=== PATIENT | male | born 1935 | race Caucasian/White ===

== ENCOUNTER 2019-06-04 00:43 | Observation (INO) | payer MEDICARE ==
--- NOTE | 2019-06-04 01:06 | ERPHSYRPT ---
- History of Present Illness Time Seen by Provider: 06/04/19 00:50 Source: patient, EMS Exam Limitations: no limitations Physician History: 84 y/o white male presents with accidental exposure to propane gas leak. appears to have been leaking for 6 hours. pt was on the same floor as the leak. son was up stairs without any sx. EMS was called by son because pt was so dizzy after lying on the couch and tried to get up and take a shower but could not. son then called ambulance. upon arrival by EMS, the door opened and scent of propane gas was quite apparent. pt was dizzy, vomiting and unable to get up. pt has bradycardia with hr in the 50s. however, en route, pt given atropine for hr in 40s and zofran. pt states, upon arrival, no cp, dizziness better. poison control center was called by EMS. they recommended ekg, carboxyhemoglobin level , lactic acid and ABG Timing/Duration: today Severity: mild Associated Symptoms: nausea, vomiting, No abdominal pain, No shortness of breath , No headaches, No other (dizziness) Allergies/Adverse Reactions: No Known Drug Allergies Allergy (Verified 06/04/19 01:11) Home Medications: Multivitamin [Multi-Vitamin Daily] 1 tab PO DAILY 05/19/14 [History] Gabapentin 100 mg PO TID 06/19/15 [History] Hx Tetanus, Diphtheria Vaccination/Date Given: Yes (within last 10 yrs) Hx Influenza Vaccination/Date Given: Yes (2012) Hx Pneumococcal Vaccination/Date Given: Yes (2010) - Review of Systems Constitutional: No Symptoms Eyes: No Symptoms Ears, Nose, & Throat: No Symptoms Respiratory: No Symptoms Cardiac: No Symptoms Abdominal/Gastrointestinal: Nausea, Vomiting Genitourinary Symptoms: No Symptoms Musculoskeletal: No Symptoms Skin: No Symptoms Neurological: Dizziness, Headache Psychological: No Symptoms Endocrine: No Symptoms Hematologic/Lymphatic: No Symptoms Immunological/Allergic: No Symptoms All Other Systems: Reviewed and Negative - Past Medical History Pertinent Past Medical History: Yes Neurological History: Peripheral Neuropathy ENT History: Cataracts Cardiac History: Hypertension Respiratory History: No Pertinent History Endocrine Medical History: No Pertinent History Musculoskeletal History: Arthritis GI Medical History: No Pertinent History History: No Pertinent History Psycho-Social History: No Pertinent History Male Reproductive Disorders: No Pertinent History Other Medical History: bilat lens implant - Past Surgical History Past Surgical History: Yes Neuro Surgical History: No Pertinent History Cardiac: No Pertinent History Respiratory: No Pertinent History Gastrointestinal: Appendectomy Genitourinary: No Pertinent History Musculoskeletal: No Pertinent History Male Surgical History: No Pertinent History Other Surgical History: urinary tract closing up and opened it up, lens implant - Social History Smoking Status: Former smoker Exposure to second hand smoke: No Drug Use: none Patient Lives Alone: Yes - Nursing Vital Signs Nursing Vital Signs: Initial Vital Signs Temperature 97.2 F 06/04/19 00:46 Pulse Rate 55 L 06/04/19 00:46 Respiratory Rate 18 06/04/19 00:46 Blood Pressure 168/79 06/04/19 00:46 O2 Sat by Pulse Oximetry 97 06/04/19 00:46 Pain Scale Pain Intensity 0 - Physical Exam General Appearance: mild distress, alert, anxiety Eye Exam: PERRL/EOMI, eyes nml inspection Ears, Nose, Throat Exam: normal ENT inspection, moist mucous membranes Neck Exam: normal inspection, non-tender, supple, full range of motion Respiratory Exam: normal breath sounds, lungs clear, airway intact, No chest tenderness, No respiratory distress Cardiovascular Exam: regular rate/rhythm, normal heart sounds, normal peripheral pulses Gastrointestinal/Abdomen Exam: soft, normal bowel sounds, No tenderness Rectal Exam: not done Back Exam: normal inspection, normal range of motion, No CVA tenderness, No vertebral tenderness Extremity Exam: normal inspection, normal range of motion, pelvis stable Neurologic Exam: alert, oriented x 3, cooperative, 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 as tested Skin Exam: normal color, warm, dry Lymphatic Exam: No adenopathy SpO2 Interpretation: normal O2 Delivery: Nasal Cannula - Course EKG Interpreted by Me: RATE (55), Sinus Rhythm, NORMAL AXIS, NORMAL INTERVALS, NORMAL QRS, Other (no comparison ekg) Ordered Tests: Active Orders 24 hr Category Date Time Status EKG-ER Only STAT Care 06/04/19 01:10 Active HEAD WITHOUT CONTRAST [CT] Stat Exams 06/04/19 01:30 Taken ABG [ARTERIAL BLOOD GASES] Stat Lab 06/04/19 01:10 Completed BMP Stat Lab 06/04/19 05:50 Received CBC W DIFF Stat Lab 06/04/19 05:50 Completed Lactic Acid Stat Lab 06/04/19 01:10 Completed Manual Differential NC Stat Lab 06/04/19 05:50 Completed TROPONIN Q3H Lab 06/04/19 05:50 Received TROPONIN Q3H Lab 06/04/19 08:45 Ordered TROPONIN Q3H Lab 06/04/19 11:45 Ordered TROPONIN Q3H Lab 06/04/19 14:45 Ordered TROPONIN Q3H Lab 06/04/19 17:45 Ordered Transfer Order Routine Transfer 06/04/19 Ordered Medication Summary Discontinued Medications Generic Name Dose Route Start Last Admin Trade Name Freq PRN Reason Stop Dose Admin Promethazine HCl 12.5 mg 06/04/19 01:42 06/04/19 04:56 Phenergan 25 Mg Inj IM 06/04/19 01:43 Not Given STAT ONE Promethazine HCl Confirm 06/04/19 01:43 Phenergan 25 Mg Inj Administered 06/04/19 01:44 Dose 25 mg .ROUTE .STK-MED ONE Lab/Rad Data: Laboratory Result Diagrams 06/04/19 05:50 06/04/19 05:50 Laboratory Results 06/04/19 06/04/19 06/04/19 Range/Units 05:50 05:50 01:10 WBC 7.5 (4.0-10.5) K/mm3 RBC 4.60 (4.1-5.6) M/mm3 Hgb 14.7 (12.5-18.0) gm/dl Hct 43.2 (42-50) % MCV 93.9 (78-100) fl MCH 32.0 (26-32) pg MCHC 34.0 (32-36) g/dl RDW 15.6 H (11.5-14.0) % Plt Count 135 L (150-450) K/mm3 MPV 9.8 H (6-9.5) fl Puncture Site RIGHT BRACHIAL pCO2 44 (35-45) mmHg pO2 96 (75-100) mmHg Base Excess 2.7 H (-2.0-2.0) O2 Saturation 96.2 (94-100) g/dF ABG pH 7.41 (7.35-7.45) ABG HCO3 27.9 (22-28) ABG O2 Sat (Measured) 99.1 (95-100) % Beto Test NOT APPLICABLE A-a Gradient 49 a/A Ratio 0.66 Hemoglobin 13.9 Carboxyhemoglobin 1.8 (0.0-6.9) % THgb Methemoglobin 1.0 L (1.4-1.5) % Potassium 5.3 H 4.2 (3.5-5.1) Temperature 37.0 C POC O2 Flow Rate 28 % Sodium 140 (137-145) mmol/L Chloride 105 (98-107) mmol/L Carbon Dioxide 31 H (22-30) mmol/L Anion Gap 9.1 (5-15) MEQ/L BUN 21 H (9-20) mg/dL Creatinine 0.84 (0.66-1.25) mg/dL Estimated GFR > 60.0 ML/MIN Glucose 115 H (74-106) mg/dL Lactic Acid (0.4-2.0) Calcium 9.6 (8.4-10.2) mg/dL 06/04/19 Range/Units 01:10 WBC (4.0-10.5) K/mm3 RBC (4.1-5.6) M/mm3 Hgb (12.5-18.0) gm/dl Hct (42-50) % MCV (78-100) fl MCH (26-32) pg MCHC (32-36) g/dl RDW (11.5-14.0) % Plt Count (150-450) K/mm3 MPV (6-9.5) fl Puncture Site pCO2 (35-45) mmHg pO2 (75-100) mmHg Base Excess (-2.0-2.0) O2 Saturation (94-100) g/dF ABG pH (7.35-7.45) ABG HCO3 (22-28) ABG O2 Sat (Measured) (95-100) % Beto Test A-a Gradient a/A Ratio Hemoglobin Carboxyhemoglobin (0.0-6.9) % THgb Methemoglobin (1.4-1.5) % Potassium (3.5-5.1) Temperature C POC O2 Flow Rate % Sodium (137-145) mmol/L Chloride (98-107) mmol/L Carbon Dioxide (22-30) mmol/L Anion Gap (5-15) MEQ/L BUN (9-20) mg/dL Creatinine (0.66-1.25) mg/dL Estimated GFR ML/MIN Glucose (74-106) mg/dL Lactic Acid 1.2 (0.4-2.0) Calcium (8.4-10.2) mg/dL - Progress Progress: improved, re-examined Progress Note: 06/04/19 04:59 pt states he is feeling better. more talkative. still with some dizziness upon standing but better. once his dizziness is gone upon standing and pt aram pos, will allow him to go home. pt refused phenergan. denies cp, denies soa and no abd pain. 06/04/19 05:31 [pt still a bit dizzy upon standing. will check labs and contact dr. drake for observation placement 06/04/19 06:[address] drake. i reviewed pt hx, condition, lab, ekg and ct head results. he accepts pt for observation, telemetry Counseled pt/family regarding: lab results, diagnosis, need for follow-up, rad results - Departure Departure Disposition: Observation Clinical Impression: Dizziness, Bradycardia, Natural gas exposure Condition: Fair Critical Care Time: No Referrals: ANDRY MEEK NP [Primary Care Provider] -
[2019-06-04 01:17] LABS: A-aADO2 49; ABG HEMOGLOBIN 13.9; ABG POTASSIUM 4.2 (3.5-5.1); ARTERIAL BLD GAS O2 SATURATION 99.1 % (95-100); ARTERIAL BLOOD GAS BASE EXCESS 2.7 (-2.0-2.0); ARTERIAL BLOOD GAS FIO2 28 %; ARTERIAL BLOOD GAS PCO2 44 mmHg (35-45); ARTERIAL BLOOD GAS PO2 96 mmHg (75-100); ARTERIAL BLOOD GAS pH 7.41 (7.35-7.45); CARBOXYHEMOGLOBIN 1.8 % THgb (0.0-6.9); HCO3- 27.9 (22-28); HGB O2 SAT 96.2 g/dF (94-100); paO2 pAO1 0.66
[2019-06-04 01:18] LABS: ABG SITE RIGHT BRACHIAL
[2019-06-04] MEDS ORDERED: Phenergan 25 MG INJ IM ONE (01:42)
[2019-06-04] MEDS ORDERED: Phenergan 25 MG INJ ONE (01:43)
[2019-06-04 05:52] LABS: Hematocrit 43.2 % (42-50); Hemoglobin 14.7 gm/dl (12.5-18.0); Mean Cell Volume 93.9 fl (78-100); Mean Platelet Volume 9.8 fl (6-9.5); Platelet Count 135 K/mm3 (150-450); Red Cell Distribution Width 15.6 % (11.5-14.0); White Blood Count 7.5 K/mm3 (4.0-10.5)
[2019-06-04 06:05] LABS: ANION GAP 9.1 MEQ/L (5-15); BLOOD UREA NITROGEN 21 mg/dL (9-20); CHLORIDE 105 mmol/L (98-107); Calcium 9.6 mg/dL (8.4-10.2); Carbon Dioxide 31 mmol/L (22-30); Creatinine 1 0.84 mg/dL (0.66-1.25); Glucose 115 mg/dL (74-106); Potassium 5.3 mmol/L (3.5-5.1); SODIUM 140 mmol/L (137-145)
[2019-06-04] MEDS ORDERED: TYLENOL 325 MG PO PRN (06:56)
[2019-06-04] MEDS ORDERED: Zofran 4 MG/2 ML VIAL IV PRN (06:56)
[2019-06-04 07:22] LABS: BAND 9 % (0.0-2.0); Basophil 2 % (0.0-1.0); Eosinophil 2 % (0.00-3.0); Lymphocytes 20 % (24-44); Monocyte 2 % (0.0-12.0); Neutrophils 65 % (36.-66.); Platelet Estimate NORMAL (NORMAL); Total Cells Counted 100; Toxic Granulation 1+
[2019-06-04 07:23] LABS: Granulocyte Absolute (ANC) 5.54 (1.4-6.9)
--- NOTE | 2019-06-04 08:42 | PCM.HP ---
History of Present Illness - Chief Complaint Chief Complaint: dizziness History of Present Illness: is a 84 year old male who used to see Dr Sharyn Suarez, he presented to the ER with a several day history of worsening dizziness, he feels much worse if he is sitting up or standing, became severe enough yesterday he didn't think he could stand. Incidentally found to have a gas leak in the home from cooking stove, he has no prior cardiac history. Takes gabapentin for peripheral neuropathy, otherwise not much medical history. He denies chest pain, shortness of breath, pnd or orthopnea. - Review of Systems Constitutional: No Fever, No Chills Eyes: No Symptoms Ears, Nose, & Throat: No Symptoms Respiratory: No Cough, No Short Of Breath Cardiac: No Chest Pain, No Edema, No Palpitations, No Syncope, No Orthopnea, No PND Abdominal/Gastrointestinal: No Abdominal Pain, No Nausea, No Vomiting, No Diarrhea Neurological: Dizziness, No Focal Weakness, No Gait Changes, No Seizure, No Sensory Changes, No Speech Changes Psychological: No Symptoms Endocrine: No Symptoms All Other Systems: Reviewed and Negative Medications & Allergies Home Medications: Home Medication List Multivitamin [Multi-Vitamin Daily] 1 tab PO DAILY 05/19/14 [History Confirmed ] Gabapentin 400 mg PO QID 06/19/15 [History Confirmed 06/04/19] Vit D3/Folic Acid/B2/B6/B12 [Folgard Tablet] 1 each PO DAILY 06/04/19 [History Confirmed 06/04/19] Allergies/Adverse Reactions: Allergies Allergy/AdvReac Type Severity Reaction Status Date / Time No Known Drug Allergies Allergy Verified 06/04/19 01:11 - Past Medical History Past Medical History: Yes Neurological History: Peripheral Neuropathy ENT History: Cataracts Cardiac History: Hypertension Respiratory History: No Pertinent History Endocrine Medical History: No Pertinent History Musculoskelatal History: Arthritis GI Medical History: No Pertinent History History: No Pertinent History Pyscho-Social History: No Pertinent History Male Reproductive Disorders: No Pertinent History Comment: bilat lens implant - Past Surgical History Past Surgical History: Yes Neuro Surgical History: No Pertinent History Cardiac History: No Pertinent History Respiratory Surgery: No Pertinent History GI Surgical History: Appendectomy Genitourinary Surgical Hx: No Pertinent History Musculskeletal Surgical Hx: No Pertinent History Male Surgical History: No Pertinent History Other Surgical History: urinary tract closing up and opened it up, lens implant - Social History Smoking Status: Former smoker Exposure to second hand smoke: No Alcohol: None Drug Use: none - Physical Exam Vital Signs: Vital Signs - 24 hr Temp Pulse Resp BP Pulse Ox 06/04/19 07:21 97.6 F 47 L 16 155/71 96 06/04/19 06:00 48 L 18 146/73 96 06/04/19 05:07 95 H 16 143/78 95 06/04/19 04:51 53 L 15 130/87 96 06/04/19 04:00 52 L 18 125/59 50 L 06/04/19 03:00 51 L 14 133/67 97 06/04/19 02:40 51 L 18 131/73 95 06/04/19 01:34 61 18 98 06/04/19 00:46 97.2 F 55 L 18 168/79 97 Oxygen-Last 24 hours O2 Percentage 2 Liters = 28% O2 Percentage 2 Liters = 28% O2 Percentage 2 Liters = 28% O2 Percentage 2 Liters = 28% General Appearance: no apparent distress, alert Neurologic Exam: alert, oriented x 3, cooperative, normal mood/affect, nml cerebellar function, sensation nml, No motor deficits Eye Exam: PERRL/EOMI, eyes nml inspection Respiratory Exam: normal breath sounds, lungs clear, No respiratory distress Cardiovascular Exam: bradycardia (sinus wanda, rate 45 on tele during exam) Gastrointestinal/Abdomen Exam: soft, normal bowel sounds, No tenderness, No mass Extremity Exam: normal inspection, normal range of motion, pelvis stable Skin Exam: normal color, warm, dry, No rash Results - Labs Lab/Micro Results: Lab Results-Last 24 Hours 06/04/19 06/04/19 06/04/19 Range/Units 01:10 01:10 05:50 WBC 7.5 (4.0-10.5) K/mm3 RBC 4.60 (4.1-5.6) M/mm3 Hgb 14.7 (12.5-18.0) gm/dl Hct 43.2 (42-50) % MCV 93.9 (78-100) fl MCH 32.0 (26-32) pg MCHC 34.0 (32-36) g/dl RDW 15.6 H (11.5-14.0) % Plt Count 135 L (150-450) K/mm3 MPV 9.8 H (6-9.5) fl Absolute Granulocytes 5.54 (1.4-6.9) Segmented Neutrophils 65 (36.-66.) % Band Neutrophils 9 H (0.0-2.0) % Lymphocytes (Manual) 20 L (24-44) % Monocytes (Manual) 2 (0.0-12.0) % Eosinophils (Manual) 2 (0.00-3.0) % Basophils (Manual) 2 H (0.0-1.0) % Toxic Granulation 1+ Platelet Estimate NORMAL (NORMAL) RBC Morphology ABNORMAL Puncture Site RIGHT BRACHIAL pCO2 44 (35-45) mmHg pO2 96 (75-100) mmHg Base Excess 2.7 H (-2.0-2.0) O2 Saturation 96.2 (94-100) g/dF ABG pH 7.41 (7.35-7.45) ABG HCO3 27.9 (22-28) ABG O2 Sat (Measured) 99.1 (95-100) % Beto Test NOT APPLICABLE A-a Gradient 49 a/A Ratio 0.66 Hemoglobin 13.9 Carboxyhemoglobin 1.8 (0.0-6.9) % THgb Methemoglobin 1.0 L (1.4-1.5) % Potassium 4.2 (3.5-5.1) Temperature 37.0 C POC O2 Flow Rate 28 % Sodium (137-145) mmol/L Chloride (98-107) mmol/L Carbon Dioxide (22-30) mmol/L Anion Gap (5-15) MEQ/L BUN (9-20) mg/dL Creatinine (0.66-1.25) mg/dL Estimated GFR ML/MIN Glucose (74-106) mg/dL Lactic Acid 1.2 (0.4-2.0) Calcium (8.4-10.2) mg/dL Troponin I (0.000-0.034) ng/mL 06/04/19 06/04/19 Range/Units 05:50 05:50 WBC (4.0-10.5) K/mm3 RBC (4.1-5.6) M/mm3 Hgb (12.5-18.0) gm/dl Hct (42-50) % MCV (78-100) fl MCH (26-32) pg MCHC (32-36) g/dl RDW (11.5-14.0) % Plt Count (150-450) K/mm3 MPV (6-9.5) fl Absolute Granulocytes (1.4-6.9) Segmented Neutrophils (36.-66.) % Band Neutrophils (0.0-2.0) % Lymphocytes (Manual) (24-44) % Monocytes (Manual) (0.0-12.0) % Eosinophils (Manual) (0.00-3.0) % Basophils (Manual) (0.0-1.0) % Toxic Granulation Platelet Estimate (NORMAL) RBC Morphology Puncture Site pCO2 (35-45) mmHg pO2 (75-100) mmHg Base Excess (-2.0-2.0) O2 Saturation (94-100) g/dF ABG pH (7.35-7.45) ABG HCO3 (22-28) ABG O2 Sat (Measured) (95-100) % Beto Test A-a Gradient a/A Ratio Hemoglobin Carboxyhemoglobin (0.0-6.9) % THgb Methemoglobin (1.4-1.5) % Potassium 5.3 H (3.5-5.1) Temperature C POC O2 Flow Rate % Sodium 140 (137-145) mmol/L Chloride 105 (98-107) mmol/L Carbon Dioxide 31 H (22-30) mmol/L Anion Gap 9.1 (5-15) MEQ/L BUN 21 H (9-20) mg/dL Creatinine 0.84 (0.66-1.25) mg/dL Estimated GFR > 60.0 ML/MIN Glucose 115 H (74-106) mg/dL Lactic Acid (0.4-2.0) Calcium 9.6 (8.4-10.2) mg/dL Troponin I < 0.012 (0.000-0.034) ng/mL - Radiology Impressions Radiology Exams & Impressions: Radiology Procedures Category Date Time Status CHEST 1 VIEW (PORTABLE) Routine Exams 06/04/19 08:37 Ordered ECHO W/2D AND DOPPLER [US] Routine Exams 06/04/19 Ordered HEAD WITHOUT CONTRAST [CT] Stat Exams 06/04/19 01:30 Taken Assessment/Plan (1) Symptomatic sinus bradycardia Current Visit: Yes Status: Acute Assessment & Plan: ordered echo, will consult with [facility] for further workup/ recommendations Code(s): R00.1 - BRADYCARDIA, UNSPECIFIED (2) Dizziness Current Visit: Yes Status: Acute Code(s): R42 - DIZZINESS AND GIDDINESS (3) Natural gas exposure Current Visit: Yes Status: Acute Assessment & Plan: resolved, ABG unremarkable and has no sequelae from this that is apparent Code(s): Z77.29 - CONTACT WITH AND EXPOSURE TO OTHER HAZARDOUS SUBSTANCES
[2019-06-04] MEDS: Sodium Chloride 0.9% 1000 ML 1,000 ML IV SCH (09:10)
--- NOTE | 2019-06-04 09:31 | XRAY ---
Indication: Dizziness and vomiting following exposure to gas leak. Multiple contiguous axial images obtained through the head without contrast. Comparison: April 03, 2008. New right-sided cochlear implant and left hearing aid producing beam artifact. Stable age-appropriate global atrophy. No acute intracranial hemorrhage, abnormal extra-axial fluid collection, or mass effect. Fourth ventricle is midline without hydrocephalus. The calvarium intact. There is again near complete opacification of both maxillary sinuses and mild mucosal thickening of both ethmoid/sphenoid sinuses. Impression: 1. Beam artifact as detailed. 2. Normal aging brain. No acute intracranial abnormalities. 3. Incidental pansinusitis. Comment: Preliminary interpretation was made by [facility]. No critical discrepancy. CT DI 68.98
--- NOTE | 2019-06-04 09:33 | XRAY ---
Indication: Cough, dizziness, and bradycardia following exposure to gas leak. Comparison: April 03, 2008. Portable apical lordotic chest demonstrates new left base discoid atelectasis/scarring. Remaining lungs clear with a few tiny calcified granulomas. Heart is not enlarged for AP portable technique. Bony thorax intact again with mild osteopenia and degenerative changes. Impression: New left base discoid atelectasis/scarring. Remaining chest nonacute with incidental chronic features.
[2019-06-04] MEDS: FOLTX (FOLBIC) PO SCH (11:02)
[2019-06-04] MEDS: THERAGRAN MULTIVITAMIN PO SCH (11:03)
[2019-06-04] MEDS: Neurontin 400 MG PO SCH ×3 (12:26→21:04)
[2019-06-04] MEDS ORDERED: Neurontin 100 MG PO SCH (13:00)
[2019-06-04] MEDS: ANTIVERT 25 MG PO PRN ×2 (14:27→19:50)
[2019-06-05 04:29] LABS: Hematocrit 42.8 % (42-50); Hemoglobin 14.6 gm/dl (12.5-18.0); Mean Cell Volume 95.1 fl (78-100); Mean Corpuscular Hemoglobin 32.4 pg (26-32); Mean Corpuscular Hgb Concent. 34.1 g/dl (32-36); Mean Platelet Volume 10.3 fl (6-9.5); Platelet Count 135 K/mm3 (150-450); Red Cell Distribution Width 15.8 % (11.5-14.0); White Blood Count 7.2 K/mm3 (4.0-10.5)
[2019-06-05 04:38] LABS: ANION GAP 8.4 MEQ/L (5-15); BLOOD UREA NITROGEN 20 mg/dL (9-20); CHLORIDE 106 mmol/L (98-107); Calcium 9.6 mg/dL (8.4-10.2); Carbon Dioxide 32 mmol/L (22-30); Creatinine 1 0.97 mg/dL (0.66-1.25); Glucose 104 mg/dL (74-106); Potassium 4.9 mmol/L (3.5-5.1); SODIUM 141 mmol/L (137-145)
[2019-06-05 04:39] LABS: TROPONIN < 0.012 ng/mL (0.000-0.034)
[2019-06-05 06:00] LABS: ATYPICAL LYMPHS 1 %; Eosinophil 3 % (0.00-3.0); Lymphocytes 33 % (24-44); Monocyte 8 % (0.0-12.0); Neutrophils 55 % (36.-66.); Platelet Estimate NORMAL (NORMAL); Total Cells Counted 100; Toxic Granulation RARE
[2019-06-05] MEDS: Sodium Chloride 0.9% 1000 ML 1,000 ML IV SCH (07:14)
[2019-06-05 07:16] VITALS: BP 158/74; PULSE 49; O2SAT 94
[2019-06-05] MEDS: Neurontin 400 MG PO SCH (07:31)
[2019-06-05] MEDS: ANTIVERT 25 MG PO PRN (07:31)
[2019-06-05] MEDS: THERAGRAN MULTIVITAMIN PO SCH (07:31)
[2019-06-05] MEDS: FOLTX (FOLBIC) PO SCH (09:55)
[2019-06-05] MEDS ORDERED: B12 PO SCH (10:00)
[2019-06-05] MEDS ORDERED: NON-FORMULARY ITEM (Multivitamin [Multi-Vitamin Daily] 1 TAB) PO SCH (10:00)
[2019-06-05] MEDS ORDERED: B6 PO SCH (10:00)
[2019-06-05] MEDS ORDERED: B2 PO SCH (10:00)
[2019-06-05] MEDS ORDERED: FOLIC ACID PO SCH (10:00)
[2019-06-05] MEDS ORDERED: VIT D3 PO SCH (10:00)
--- NOTE | 2019-06-07 12:57 | SSS ---
DISCHARGE DIAGNOSES: 1) VERTIGO. 2) BRADYCARDIA. HOSPITAL COURSE: The patient is an 84 year-old white male patient who reports he had trouble with dizziness. He reports it got really bad prior to him coming in. The patient reports that he has had a cochlear implant back a few months ago and he had some dizziness after that. He also reports dizziness episodes in his past as well. The patient also reported he has a normal resting heart rate of 52. The patient was admitted to the hospital from the emergency room for the dizziness history and for evaluation and management. He did have a cardiology consultation from tele-cardiology from Dr. Torres who felt the patient did not require a pacemaker and that his symptoms were most likely attributable to the vertigo. The patient has been on Antivert since. He is feeling much better this morning and was felt to be ready for discharge home at this time. HOME MEDICATIONS: Include gabapentin for neuropathy issue. He did previously have a history of having low sodium attributable to some medications but he has not had that problem since those medicines have been changed. ALLERGIES: NKDA. PHYSICAL EXAMINATION: The patient's most recent vitals showed his temperature to be 97.6F, pulse 47, respiratory rate 16 and blood pressure 155/71. Again, he was alert, oriented x3. He was able to ambulate to the bathroom without difficulty on his own. He does live at home with his son. Again, the patient is felt to be ready for discharge home at this time. He will be discharged on Antivert 25 mg t.i.d. He was instructed to follow up with his primary provider in the next week. He is to call us if he has any further problems in the interim.
== END 2019-06-05 09:55 | disposition home or self-care (01) ==
LOC: ED 00:43 → MED SURG 06:49
PROVIDERS: ADMIT Family Medicine; ATTEND Family Medicine
DX: R42 Dizziness and giddiness (principal); R00.1 Bradycardia, unspecified; G62.9 Polyneuropathy, unspecified; I10 Essential (primary) hypertension; Z77.29 Contact with and (suspected) exposure to other hazardous substances; Z79.899 Other long term (current) drug therapy
CPT/HCPCS: 36415; 36600; 70450; 71045; 80048; 82375; 82803; 83605; 84443; 84484; 85025; 93005; 93268; 93306; 99285; G0378; Q3014; 99284; J2550; A9270-GY

== ENCOUNTER 2023-05-19 18:15 | Emergency (ER) | payer MEDICARE ==
--- NOTE | 2023-05-19 18:20 | ERPHSYRPT ---
- History of Present Illness Time Seen by Provider: 05/19/23 18:20 Source: patient, family (Son who is deaf and does not read lips. He drove his father (the patient) to the hospital) Exam Limitations: no limitations Physician History: This is an 88-year-old white male patient of Dr. Shipley who has had a cough and fever for the last week he felt that he was going to get over it. However he is got a carpal cough and he has generalized aches and pains. He has chronic dizziness and hyperlipidemia. His cough is productive. He does not have chest pain. He has no abdominal pain. He has had no nausea vomiting or diarrhea. Timing/Duration: week(s) (1) Cough Quality/Degree: mild (To moderate), productive cough Possible Cause: no prior episodes Modifying Factors: Improves With: coughing Associated Symptoms: fever, cough, muscle aches Allergies/Adverse Reactions: No Known Drug Allergies Allergy (Verified 06/04/19 01:11) Home Medications: Multivitamin [Multi-Vitamin Daily] 1 tab PO DAILY 05/19/14 [History] Gabapentin 400 mg PO QID 06/19/15 [History] Vit D3/Folic Acid/B2/B6/B12 [Folgard Tablet] 1 each PO DAILY 06/04/19 [History] Atorvastatin Calcium 40 mg PO DAILY 05/19/23 [History] Cilostazol 100 mg [Pletal 100 MG] 100 mg PO DAILY 05/19/23 [History] Hx Tetanus, Diphtheria Vaccination/Date Given: Yes (within last 10 yrs) Hx Influenza Vaccination/Date Given: Yes (2012) Hx Pneumococcal Vaccination/Date Given: Yes (2010) Travel Risk - International Travel Have you traveled outside of the country in past 3 weeks: No - Coronavirus Screening Are you exhibiting any of the following symptoms?: Yes Symptoms: Cough: New Onset, Headaches/Body Aches/Fatigue Close contact with a COVID-19 positive Pt in past 14-21 Days: No - Review of Systems Constitutional: Fever Eyes: No Symptoms Ears, Nose, & Throat: No Symptoms Respiratory: Cough Cardiac: No Symptoms Abdominal/Gastrointestinal: No Symptoms Genitourinary Symptoms: No Symptoms Musculoskeletal: Arthralgias, Myalgias Skin: No Symptoms Neurological: No Symptoms Psychological: No Symptoms Endocrine: No Symptoms Hematologic/Lymphatic: No Symptoms Immunological/Allergic: No Symptoms All Other Systems: Reviewed and Negative - Past Medical History Pertinent Past Medical History: Yes Neurological History: Peripheral Neuropathy ENT History: Cataracts Cardiac History: Hypertension Respiratory History: No Pertinent History Endocrine Medical History: No Pertinent History Musculoskeletal History: Arthritis GI Medical History: No Pertinent History History: No Pertinent History Psycho-Social History: No Pertinent History Male Reproductive Disorders: No Pertinent History Other Medical History: bilat lens implant - Past Surgical History Past Surgical History: Yes Neuro Surgical History: No Pertinent History Cardiac: No Pertinent History Respiratory: No Pertinent History Gastrointestinal: Appendectomy Genitourinary: No Pertinent History Musculoskeletal: No Pertinent History Male Surgical History: No Pertinent History Other Surgical History: urinary tract closing up and opened it up, lens implant - Social History Smoking Status: Former smoker Exposure to second hand smoke: No Drug Use: none Patient Lives Alone: Yes - Nursing Vital Signs Nursing Vital Signs: Initial Vital Signs Temperature 101.4 F 05/19/23 18:24 Pulse Rate 126 H 05/19/23 18:24 Respiratory Rate 24 05/19/23 18:24 Blood Pressure 166/86 05/19/23 18:24 O2 Sat by Pulse Oximetry 94 L 05/19/23 18:24 Pain Scale Pain Intensity 4 - Physical Exam General Appearance: no apparent distress, alert, anxiety Eye Exam: PERRL/EOMI, eyes nml inspection Ears, Nose, Throat Exam: normal ENT inspection, moist mucous membranes Neck Exam: normal inspection, non-tender, supple, full range of motion Respiratory Exam: normal breath sounds, lungs clear, airway intact, No chest tenderness, No respiratory distress Cardiovascular Exam: tachycardia Gastrointestinal/Abdomen Exam: soft, normal bowel sounds, No tenderness Rectal Exam: not done Back Exam: normal inspection, normal range of motion, No CVA tenderness, No vertebral tenderness Extremity Exam: normal inspection, normal range of motion, pelvis stable Neurologic Exam: alert, oriented x 3, cooperative, labeling associate II-XII nml as tested, normal mood/affect, nml cerebellar function, nml station & gait, sensation nml Skin Exam: normal color, warm, dry Lymphatic Exam: No adenopathy SpO2 Interpretation: borderline oxygenation O2 Delivery: Room Air - Course Nursing assessment & vital signs reviewed: Yes Ordered Tests: Active Orders 24 hr Category Date Time Status IV Insertion STAT Care 05/19/23 18:36 Active Pulse Oximetry (ED) STAT Care 05/19/23 18:36 Active CHEST 1 VIEW (PORTABLE) Stat Exams 05/19/23 18:36 Taken BLOOD CULTURE Stat Lab 05/19/23 18:45 Received CBC W DIFF Stat Lab 05/19/23 18:45 Completed CMP Stat Lab 05/19/23 18:45 Completed UA W/RFX UR CULTURE Stat Lab 05/19/23 20:29 Completed Medication Summary Discontinued Medications Generic Name Dose Route Start Last Admin Trade Name Chun PRN Reason Stop Dose Admin Hydrocodone Bitart/Acetaminophen 10 ml 05/19/23 19:07 05/19/23 19:47 Hydrocodone/Acetaminophen 5 Ml Udcup PO 05/19/23 19:08 10 ml STAT STA Administration Hydrocodone Bitart/Acetaminophen Confirm 05/19/23 19:46 Hydrocodone/Acetaminophen 5 Ml Udcup Administered 05/19/23 19:47 Dose 10 ml .ROUTE .STK-MED ONE Sodium Chloride 500 mls @ 500 mls/hr 05/19/23 19:08 05/19/23 20:59 Sodium Chloride 0.9% 500 Ml IV 05/19/23 20:07 Infused .Q1H ONE Infusion Ceftriaxone Sodium/Dextrose 1 g in 50 mls @ 100 mls/hr 05/19/23 19:47 05/19/23 20:39 Rocephin 1 Gm-D5w 50 Ml Bag IV 05/19/23 20:16 Infused STAT STA Infusion Sodium Chloride Confirm 05/19/23 19:46 Sodium Chloride 0.9% 500 Ml Administered 05/19/23 19:47 Dose 500 mls @ ud IV .STK-MED ONE Ceftriaxone Sodium/Dextrose Confirm 05/19/23 20:03 Rocephin 1 Gm-D5w 50 Ml Bag Administered 05/19/23 20:04 Dose 1 g in 50 mls @ ud IV .STK-MED ONE Ibuprofen 600 mg 05/19/23 19:07 05/19/23 19:47 Ibuprofen 600 Mg Tablet PO 05/19/23 19:08 600 mg STAT ONE Administration Ibuprofen Confirm 05/19/23 19:46 Ibuprofen 600 Mg Tablet Administered 05/19/23 19:47 Dose 600 mg .ROUTE .STK-MED ONE Lab/Rad Data: Laboratory Result Diagrams 05/19/23 18:45 05/19/23 18:45 Laboratory Results 07/02/0605/19/23 05/19/23 Range/Units 20:29 19:00 19:00 WBC (4.0-10.5) x10^3/uL RBC (4.1-5.6) x10^6/uL Hgb (12.5-18.0) g/dL Hct (42-50) % MCV (78-100) fL MCH (26-32) pg MCHC (32-36) g/dL RDW (11.5-14.0) % Plt Count (150-450) x10^3/uL MPV (7.5-11.0) fL Gran % (36.0-66.0) % Immature Gran % (Auto) (0.00-0.4) % Nucleat RBC Rel Count (0.00-0.1) % Eos # (Auto) (0-0.5) x10^3/uL Immature Gran # (Auto) (0.00-0.03) x10^3u/L Absolute Lymphs (auto) (1.0-4.6) x10^3/uL Absolute Monos (auto) (0.0-1.3) x10^3/uL Absolute Nucleated RBC (0.00-0.01) x10^3u/L Lymphocytes % (24.0-44.0) % Monocytes % (0.0-12.0) % Eosinophils % (0.00-5.0) % Basophils % (0.0-0.4) % Absolute Granulocytes (1.4-6.9) x10^3/uL Basophils # (0-0.4) x10^3/uL Sodium (137-145) mmol/L Potassium (3.5-5.1) mmol/L Chloride (98-107) mmol/L Carbon Dioxide (22-30) mmol/L Anion Gap (5-15) MEQ/L BUN (9-20) mg/dL Creatinine (0.66-1.25) mg/dL Estimated GFR ML/MIN Glucose (74-106) mg/dL Calcium (8.4-10.2) mg/dL Total Bilirubin (0.2-1.3) mg/dL AST (17-59) U/L ALT (0-50) U/L Alkaline Phosphatase (38-126) U/L Serum Total Protein (6.3-8.2) g/dL Albumin (3.5-5.0) g/dL Urine Color Dark Yellow (Yellow) Urine Appearance Clear (Clear) Urine pH 6.0 (4.6-8.0) Ur Specific Hancock 1.020 (1.005-1.030) Urine Protein Trace A (Negative) Urine Glucose (UA) Negative (Negative) mg/dL Urine Ketones Negative (Negative) Urine Blood Negative (Negative) Urine Nitrite Negative (Negative) Urine Bilirubin Negative (Negative) Urine Urobilinogen 2.0 A (0.2) mg/dL Ur Leukocyte Esterase Trace A (Negative) U Hyaline Cast (Auto) NONE SEEN (0-2) /LPF Urine Microscopic RBC 3-5 (0-5) /HPF Urine Microscopic WBC 3-5 (0-5) /HPF Ur Epithelial Cells None Seen (None Seen) /HPF Urine Bacteria None Seen (None Seen) /HPF Urine Culture Reflexed NO (NO) Influenza Type A Ag NEGATIVE (NEGATIVE) Influenza Type B Ag NEGATIVE (NEGATIVE) RSV (PCR) NEGATIVE (NEGATIVE) SARS-CoV-2 (PCR) NEGATIVE (NEGATIVE) Group A Strep Antibody NOT DETECTED (NEGATIVE) 05/19/23 05/19/23 Range/Units 18:45 18:45 WBC 10.5 (4.0-10.5) x10^3/uL RBC 4.65 (4.1-5.6) x10^6/uL Hgb 13.7 (12.5-18.0) g/dL Hct 41.5 L (42-50) % MCV 89.2 (78-100) fL MCH 29.5 (26-32) pg MCHC 33.0 (32-36) g/dL RDW 14.7 H (11.5-14.0) % Plt Count 237 (150-450) x10^3/uL MPV 10.3 (7.5-11.0) fL Gran % 82.2 H (36.0-66.0) % Immature Gran % (Auto) 0.8 H (0.00-0.4) % Nucleat RBC Rel Count 0.0 (0.00-0.1) % Eos # (Auto) 0.09 (0-0.5) x10^3/uL Immature Gran # (Auto) 0.08 H (0.00-0.03) x10^3u/L Absolute Lymphs (auto) 0.90 L (1.0-4.6) x10^3/uL Absolute Monos (auto) 0.68 (0.0-1.3) x10^3/uL Absolute Nucleated RBC 0.00 (0.00-0.01) x10^3u/L Lymphocytes % 8.6 L (24.0-44.0) % Monocytes % 6.5 (0.0-12.0) % Eosinophils % 0.9 (0.00-5.0) % Basophils % 1.0 (0.0-0.4) % Absolute Granulocytes 8.60 H (1.4-6.9) x10^3/uL Basophils # 0.10 (0-0.4) x10^3/uL Sodium 133 L (137-145) mmol/L Potassium 4.3 (3.5-5.1) mmol/L Chloride 97 L (98-107) mmol/L Carbon Dioxide 26 (22-30) mmol/L Anion Gap 14.2 (5-15) MEQ/L BUN 16 (9-20) mg/dL Creatinine 0.83 (0.66-1.25) mg/dL Estimated GFR > 60.0 ML/MIN Glucose 232 H (74-106) mg/dL Calcium 9.0 (8.4-10.2) mg/dL Total Bilirubin 3.40 H (0.2-1.3) mg/dL AST 25 (17-59) U/L ALT 23 (0-50) U/L Alkaline Phosphatase 99 (38-126) U/L Serum Total Protein 7.4 (6.3-8.2) g/dL Albumin 4.0 (3.5-5.0) g/dL Urine Color (Yellow) Urine Appearance (Clear) Urine pH (4.6-8.0) Ur Specific Hancock (1.005-1.030) Urine Protein (Negative) Urine Glucose (UA) (Negative) mg/dL Urine Ketones (Negative) Urine Blood (Negative) Urine Nitrite (Negative) Urine Bilirubin (Negative) Urine Urobilinogen (0.2) mg/dL Ur Leukocyte Esterase (Negative) U Hyaline Cast (Auto) (0-2) /LPF Urine Microscopic RBC (0-5) /HPF Urine Microscopic WBC (0-5) /HPF Ur Epithelial Cells (None Seen) /HPF Urine Bacteria (None Seen) /HPF Urine Culture Reflexed (NO) Influenza Type A Ag (NEGATIVE) Influenza Type B Ag (NEGATIVE) RSV (PCR) (NEGATIVE) SARS-CoV-2 (PCR) (NEGATIVE) Group A Strep Antibody (NEGATIVE) - Progress Progress: improved, re-examined Air Movement: good Progress Note: 05/19/23 21:28 Chest x-ray was interpreted by me. There is question of bibasilar atelectasis versus infiltrate right side worse than left. Clinically, patient states he is feeling much better. This patient's medical issue is 1 of moderate complexity. The level complexity and the work-up performed is based on review of the patient's past medical history, review the patient's medication list, review of the patient's drug allergy list, history of present illness and physical findings on examination. Work-up in this patient includes placement of intravenous line, infusion of normal saline solution, CBC, CMP, urinalysis, chest x-ray, viral swabs and strep swabs. We also provided the patient with hydrocodone elixir for cough control. Patient has, in my opinion a pneumonia right lower lobe side worse than the left lower lobe. We provided him with Rocephin 1 g intravenously. Tomorrow is a holiday so we will send a prescription remotely to his pharmacy for a Z-Temo remainder of 4 days. We will also send home with him hydrocodone elixir for tomorrow's use. Blood Culture(s) Obtained: No Antibiotics given: Yes Counseled pt/family regarding: lab results, diagnosis, need for follow-up, rad results Medical Desision Making - Independent Historian Additional History obtained from: Child (Son) - Diagnostic Testing Diagnostic test were ordered, analyzed, and reviewed by me: Yes Radiological Interpretation: Interpreted by me - Risk of complications The pt has a mod risk of morbidity or mortality based on: Need for prescription drug management - Departure Departure Disposition: Home Clinical Impression: Pneumonia Condition: Stable Critical Care Time: No Referrals: LISA SHIPLEY MD [Primary Care Provider] - Follow up/PCP as directed Additional Instructions: Drink plenty of fluids. Take your medication as prescribed. Fill your prescrip tions on 05/21/2023. Take your medication tomorrow as instructed. Follow-up with your primary care provider on 05/21/2023 by phone to make arranges for follow-up appointment for further evaluation management. Prescriptions: Hydrocodone/Acetaminophen [Hydrocodone-Acetamn 7.5-325/15] 10 ml PO Q8H PRN PRN #120 ml MDD 30 ml PRN Reason: Cough Azithromycin 250 mg [Zithromax 250 MG TABLET] 250 mg PO ZPACK #4 tablet
[2023-05-19] MEDS ORDERED: MOTRIN 600 MG PO ONE (19:07)
[2023-05-19] MEDS ORDERED: HYDROCODONE-ACETAMIN 2.5-108/5 ML SOLUTION PO STA ×2 (19:07→21:35)
[2023-05-19] MEDS ORDERED: Sodium Chloride 0.9% 500 ML 500 ML IV ONE ×2 (19:08→19:46)
[2023-05-19 19:20] LABS: Eosinophil % 0.9 % (0.00-5.0); Eosinophil (Absolute #) 0.09 x10^3/uL (0-0.5); Hematocrit 41.5 % (42-50); Hemoglobin 13.7 g/dL (12.5-18.0); IMMATURE GRAN # 0.08 x10^3u/L (0.00-0.03); IMMATURE GRAN % 0.8 % (0.00-0.4); Lymphocytes % 8.6 % (24.0-44.0); Mean Cell Volume 89.2 fL (78-100); Mean Corpuscular Hemoglobin 29.5 pg (26-32); Mean Platelet Volume 10.3 fL (7.5-11.0); Monocyte (Absolute #) 0.68 x10^3/uL (0.0-1.3); Monocytes % 6.5 % (0.0-12.0); Neutrophil % 82.2 % (36.0-66.0); Platelet Count 237 x10^3/uL (150-450); Red Blood Count 4.65 x10^6/uL (4.1-5.6); Red Cell Distribution Width 14.7 % (11.5-14.0); White Blood Count 10.5 x10^3/uL (4.0-10.5)
[2023-05-19 19:37] LABS: ALKALINE PHOSPHATASE 99 U/L (38-126); ANION GAP 14.2 MEQ/L (5-15); BLOOD UREA NITROGEN 16 mg/dL (9-20); CHLORIDE 97 mmol/L (98-107); Carbon Dioxide 26 mmol/L (22-30); Creatinine 1 0.83 mg/dL (0.66-1.25); EST GLOMERULAR FILTRATION RATE > 60.0 ML/MIN; Glucose 232 mg/dL (74-106); Potassium 4.3 mmol/L (3.5-5.1); SGOT/AST 25 U/L (17-59); SGPT/ALT 23 U/L (0-50); SODIUM 133 mmol/L (137-145); Total Protein 7.4 g/dL (6.3-8.2)
[2023-05-19] MEDS ORDERED: MOTRIN 600 MG ONE (19:46)
[2023-05-19] MEDS ORDERED: HYDROCODONE-ACETAMIN 2.5-108/5 ML SOLUTION ONE ×2 (19:46→21:50)
[2023-05-19] MEDS ORDERED: ROCEPHIN 1 Gm-D5w 50 ml Bag** 1 G/50 ML IVPB IV STA (19:47)
[2023-05-19 20:00] LABS: INFLUENZA A NEGATIVE (NEGATIVE); INFLUENZA B NEGATIVE (NEGATIVE); RESPIRATORY SYNCTIAL VIRUS NEGATIVE (NEGATIVE); SARS-CoV-2 Xpert Express NEGATIVE (NEGATIVE)
[2023-05-19] MEDS ORDERED: ROCEPHIN 1 Gm-D5w 50 ml Bag** 1 G/50 ML IVPB IV ONE (20:03)
[2023-05-19 20:43] LABS: Appearance Clear (Clear); Bacteria None Seen /HPF (None Seen); Bilirubin Negative (Negative); Blood Negative (Negative); Epithelial Cells None Seen /HPF (None Seen); Glucose, Urine Negative (Negative); Hyaline Casts NONE SEEN /LPF (0-2); Ketones Negative (Negative); Leukocyte Esterase Trace (Negative); Nitrite Negative (Negative); Protein,Urine Dip Trace (Negative)
[2023-05-19 20:47] LABS: ADD URINE CULTURE? NO (NO)
[2023-05-19] MEDS ORDERED: Zithromax 250 MG TABLET PO ONE (21:34)
[2023-05-19 21:39] VITALS: BP 112/62; PULSE 86; O2SAT 99
[2023-05-19] MEDS ORDERED: Zithromax 250 MG TABLET ONE (21:41)
--- NOTE | 2023-05-19 22:10 | XRAY ---
Indication: Cough. Comparison: February 18, 2022 Portable chest demonstrates new left infrahilar infiltrate versus atelectasis with tiny effusion. Remaining heart and right lung unremarkable again with tortuous descending aorta. Bony thorax intact again with osteopenia and mild degenerative changes.
== END 2023-05-19 22:03 | disposition home or self-care (01) ==
LOC: ED 18:15
DX: J18.9 Pneumonia, unspecified organism (principal); R05.9 Cough, unspecified; R50.9 Fever, unspecified; M79.10 Myalgia, unspecified site; E78.5 Hyperlipidemia, unspecified; Z79.02 Long term (current) use of antithrombotics/antiplatelets; Z79.891 Long term (current) use of opiate analgesic; Z79.899 Other long term (current) drug therapy; Z20.828 Contact with and (suspected) exposure to other viral communicable diseases
CPT/HCPCS: 0241U; 36415; 71045; 80053; 81001; 85025; 87040; 87651; 94760; 96360; 96365; 99284; J0696; A9270-GY

== ENCOUNTER 2023-10-23 09:57 | Day surgery (SDC) | payer MEDICARE ==
--- NOTE | 2023-10-22 14:21 | HP ---
DATE OF SURGERY: 10/23/2023 HISTORY OF PRESENT ILLNESS: The patient is an 88-year-old male who presents with complaints of history of colon polyps and family history of colon cancer. The patient is a pretty healthy 88-year-old. His mother did have colon cancer. Last scope was over ten years ago and had polyps. He wishes to have a colonoscopy at this time. I did discuss this case with Dr. Reynold Ortega who did think that this was indicated on this 88-year-old patient. PAST MEDICAL HISTORY: Hyperlipidemia. PAST SURGICAL HISTORY: Appendectomy. Ear surgery. Carpal tunnel. Skin lesion removal. ALLERGIES: NKDA. MEDICATIONS: Multivitamin, atorvastatin, gabapentin, vitamin D, vitamin B. FAMILY HISTORY: Colon cancer, lung cancer. SOCIAL HISTORY: Negative. REVIEW OF SYSTEMS: CONSTITUTIONAL: Denies fever or chills. CHEST: Denies shortness of breath. CVS: Denies chest pain. ABDOMEN: Denies abdominal pain. PHYSICAL EXAMINATION: GENERAL: No acute distress. CHEST: Nonlabored. No shortness of breath. CVS: Regular rate and rhythm. ABDOMEN: Soft. IMPRESSION: History of polyps, family history of colon cancer. PLAN: Colonoscopy with Dr. Reynold Ortega. As dictated by Diana Wilson NP.
[2023-10-23] MEDS ORDERED: Lactated Ringers 1,000 ML IV SCH (10:30)
[2023-10-23 10:37] VITALS: RESP 16; TEMP 96.6; O2SAT 96
[2023-10-23] MEDS ORDERED: Lactated Ringers 1,000 ML IV ONE (10:37)
[2023-10-23] MEDS ORDERED: DIPRIVAN 200 MG/20 ML IV ONE ×2 (12:22→12:44)
[2023-10-23] MEDS ORDERED: GlucaGen 1 MG ONE (12:40)
[2023-10-23 13:54] VITALS: BP 151/82; PULSE 54
--- NOTE | 2023-10-23 14:13 | OP ---
SURGERY DATE/TIME: 10/23/2023 1227 PREOPERATIVE DIAGNOSIS: Follow up of polyps. POSTOPERATIVE DIAGNOSIS: PROCEDURE: Colonoscopy. SURGEON: Reynold Ortega M.D. ANESTHESIA: MAC. COMPLICATIONS: None. CONDITION: Stable. INDICATION: He has had extensive polyps. He is 88 and this is noted. He is very functional. DESCRIPTION OF PROCEDURE: He was taken to endoscopy. Left lateral decubitus position. Anal digital examination satisfactory. Prostate satisfactory. At 24 cm, a 1 cm polyp was taken with hot biopsy forceps. The scope was advanced over to the cecum. Appendiceal orifice not visible but the base of cecum and ileocecal valve were normal. Ascending, hepatic, transverse, splenic, descending, sigmoid. The sigmoid/rectum junction two - 6 mm polyps taken with hot biopsy forceps to extinction. The scope is withdrawn. The patient tolerated the procedure satisfactorily. Findings discussed with the family. This is his last scope. We successfully done a polypectomy x3 today.
== END 2023-10-23 13:48 | disposition home or self-care (01) ==
LOC: SDC 09:57
PROVIDERS: ATTEND Surgery
DX: Z09 Encounter for follow-up examination after completed treatment for conditions other than malignant neoplasm (principal); Z86.010 Personal history of colon polyps; Z80.0 Family history of malignant neoplasm of digestive organs; D12.5 Benign neoplasm of sigmoid colon
CPT/HCPCS: 99100; J1610; J2704